=== PATIENT | male | born 1975 | race Caucasian/White ===

== ENCOUNTER 2017-02-06 07:47 | Observation (INO) | payer BC ==
[2017-02-04 15:47] VITALS: BMI 52.9
[~2017-02-06 07:47] MED LIST: DEXAMETHASONE SOD PHOSPHATE 10 MG/ML 1 ML VIAL IV ONE; ONDANSETRON 4 MG/2 ML VIAL IVP ONE; Pre Op ABX Message 1 EACH MISC MISCELLANE ONE; SCOPOLAMINE 1.5MG/72HR PATCH TRANSDERM ONE
[2017-02-06] MEDS: LACTATED RINGERS 1,000 ML IV SCH ×3 (08:34→21:45)
[2017-02-06] MEDS ORDERED: LIDOCAINE 1% 20 ML VIAL (10MG/ML) FOR IV START INTRADERMA ONE (08:37)
[2017-02-06] MEDS ORDERED: ceFAZolin 2 GM in SODIUM CHLORIDE 0.9% 100 ML IVPB ONE (08:53)
[2017-02-06] MEDS ORDERED: LIDOCAINE 1% INJ 10MG/ML (20 ML MDV) ONE (09:24)
[2017-02-06] MEDS ORDERED: fentaNYL (PF) 50 MCG/ML 2 ML AMP ONE (09:24)
[2017-02-06] MEDS ORDERED: HYDROmorphone (PF) 1 MG/ML ONE (09:24)
[2017-02-06] MEDS ORDERED: GLYCOPYRROLATE 0.2 MG/ML 2 ML VIAL ONE (09:24)
[2017-02-06] MEDS ORDERED: SUCCINYLCHOLINE CHLORIDE VIAL 200 MG/10 ML VIAL IV ONE (09:24)
[2017-02-06] MEDS ORDERED: MIDAZOLAM 2 MG/2 ML VIAL ONE (09:24)
[2017-02-06] MEDS ORDERED: PROPOFOL 10 MG/ML 20 ML VIAL IV ONE (09:24)
[2017-02-06] MEDS ORDERED: ePHEDrine 50 MG/ML 1 ML AMP ONE (09:24)
[2017-02-06] MEDS ORDERED: ceFAZolin 1,000 MG in SODIUM CHLORIDE 0.9% 1,000 ML IRRIGATION ONE (09:50)
[2017-02-06] MEDS ORDERED: LACTATED RINGERS 1,000 ML IV ONE (09:55)
[2017-02-06] MEDS ORDERED: HYDROcodone/APAP 5-325MG 1 EACH TAB PO PRN ×2 (10:56)
[2017-02-06] MEDS ORDERED: ONDANSETRON 4 MG/2 ML VIAL IVP PRN (10:56)
[2017-02-06] MEDS: HYDROmorphone 1 MG/ML 1 ML SYRINGE IVP PRN ×6 (10:56→23:40)
[2017-02-06] MEDS ORDERED: SENNOSIDES-DOCUSATE SODIUM 1 EACH TAB PO PRN (10:56)
[2017-02-06] MEDS ORDERED: HYDROmorphone 1 MG/ML 1 ML SYRINGE IVP PRN ×2 (10:56)
[2017-02-06] MEDS ORDERED: TEMAZEPAM 15 MG CAP PO PRN (10:56)
[2017-02-06] MEDS ORDERED: HYDROcodone/APAP 7.5-325MG 1 EACH TAB PO PRN (11:00)
[2017-02-06] MEDS ORDERED: KETOROLAC 30 MG/ML 1 ML VIAL IVP ONE (11:05)
[2017-02-06] MEDS: MIDAZOLAM 2 MG/2 ML VIAL IV PRN ×2 (11:15→11:23)
[2017-02-06] MEDS: MEPERIDINE 50 MG/ML SYRINGE IVP ONE ×2 (11:16→11:22)
[2017-02-06] MEDS: fentaNYL (PF) 50 MCG/ML 2 ML AMP IV ONE ×2 (11:39→11:50)
[2017-02-06 12:02] VITALS: RESP 16
[2017-02-06] MEDS: ceFAZolin 2 GM in SODIUM CHLORIDE 0.9% 100 ML IVPB SCH ×2 (14:00→23:43)
[2017-02-06] MEDS: HYDROcodone/APAP 7.5-325MG 1 EACH TAB PO PRN ×2 (15:33→21:44)
[2017-02-06] MEDS: hydrOXYzine PAMOATE 25 MG CAP PO PRN (21:44)
[2017-02-07] MEDS: LACTATED RINGERS 1,000 ML IV SCH ×2 (00:47→09:17)
[2017-02-07] MEDS: HYDROcodone/APAP 7.5-325MG 1 EACH TAB PO PRN ×2 (03:11→09:26)
[2017-02-07] MEDS: hydrOXYzine PAMOATE 25 MG CAP PO PRN ×4 (03:11→21:07)
[2017-02-07] MEDS: LISINOPRIL 10 MG TAB PO SCH (07:37)
[2017-02-07] MEDS: HYDROmorphone 1 MG/ML 1 ML SYRINGE IVP PRN ×2 (07:37→12:24)
[2017-02-07] MEDS ORDERED: LISINOPRIL 2.5 MG TAB PO SCH (09:00)
--- NOTE | 2017-02-07 10:40 | P.DS ---
Providers Date of admission: 02/06/17 22:04 Expected date of discharge: 02/07/17 Attending physician: Guido Sanchez Primary care physician: Felipe Taylor - Discharge Diagnosis(es) (1) Quadriceps tendon rupture Current Visit: Yes Status: Acute Hospital Course: This is a 41-year-old male who is seen in our office with acute quadriceps tendon rupture. It was recommended that he go undergo quadriceps tendon repair. Patient is admitted to [facility] on 02/06/2017. Patient underwent open quadriceps tendon repair on 02/06/2017. He is in good condition postoperatively. Vital signs and labs are stable. The patient may be discharged to home on 02/07/2017 in good condition. Patient Condition at Discharge: Good Plan - Discharge Summary New Discharge Prescriptions: Aspirin 325 mg PO BID #60 tab HYDROcodone/APAP 10-325MG [Dawson 10-325] 1 - 2 tab PO Q4-6H PRN #90 tab PRN Reason: Pain Sennosides-Docusate Sodium [Senokot-S] 2 tab PO DAILY #30 tablet hydrOXYzine PAMOATE [Vistaril] 25 mg PO Q4-6H #30 capsule Discharge Medication List Lisinopril [Zestril] 10 mg PO QAM 01/23/15 [History] Hydrocodone/Acetaminophen [Hydrocodone/Acetaminophen 7.5-300] 1 tab PO Q4H PRN 02/04/17 [History] Aspirin 325 mg PO BID #60 tab 02/06/17 [Rx] Sennosides-Docusate Sodium [Senokot-S] 2 tab PO DAILY #30 tablet 02/06/17 [Rx] HYDROcodone/APAP 10-325MG [Dawson 10-325] 1 - 2 tab PO Q4-6H PRN #90 tab [Rx] hydrOXYzine PAMOATE [Vistaril] 25 mg PO Q4-6H #30 capsule 02/07/17 [Rx] Follow up Appointment(s)/Referral(s): Guido Sanchez DO [Doctor of Osteopathic Medicine] - 10 Days (10-14 days) Activity/Diet/Wound Care/Special Instructions: Change knee dressing daily and as needed. Keep incision clean and dry Yordan to be removed at follow up appointment Keep knee brace on at all times Non-weightbearing to the right leg Follow up with Dr. Sanchez in 10-14 days Call [facility] with any questions or concerns, . Discharge Disposition: HOME SELF-CARE
[2017-02-07] MEDS ORDERED: HYDROcodone/APAP 10-325MG 1 EACH TAB PO PRN (11:34)
[2017-02-07] MEDS: HYDROcodone/APAP 10-325MG 1 EACH TAB PO PRN ×2 (15:38→21:07)
[2017-02-08] MEDS: hydrOXYzine PAMOATE 25 MG CAP PO PRN ×2 (03:33→08:21)
[2017-02-08] MEDS: HYDROcodone/APAP 10-325MG 1 EACH TAB PO PRN ×2 (03:33→08:21)
[2017-02-08] MEDS: LISINOPRIL 10 MG TAB PO SCH (08:13)
--- NOTE | 2017-02-08 10:05 | P.PN ---
Progress Note - Text This is an addendum to discharge summary on Minor Leung. Patient's discharge was held yesterday due to pain management. The patient is discharged to home on 02/08/2017 in good condition.
[2017-02-08 10:31] VITALS: BP 127/75; PULSE 94; TEMP 98
--- NOTE | 2017-02-10 08:20 | OP ---
DATE OF SERVICE: 02/06/2017 SURGEON: RAYRAY AZAR DO SHAPER OPERATOR: Claudia Everett NP PREOPERATIVE DIAGNOSIS: Acute rupture quadriceps tendon right knee. POSTOPERATIVE DIAGNOSIS: Acute rupture quadriceps tendon right knee. OPERATION: Repair of the acute quadriceps rupture of the right knee at the superior pole of patella. ANESTHESIA: ESTIMATED BLOOD LOSS: SPECIMENS REMOVED: COMPLICATIONS: OPERATIVE FINDINGS: DESCRIPTION OF PROCEDURE: The patient was taken to the operative suite and placed in supine position. Spinal anesthesia was performed by the department of anesthesiology. Betadine prep was carried out over the right knee from mid thigh to mid calf. Sterile drapes applied in the usual manner. Pneumatic tourniquet was inflated to 350 mmHg. A longitudinal incision was developed at the superior pole of the right patella position. Dissection in the subcutaneous tissue was performed. The direct visualization of the acute rupture was noted with quadriceps tendon retracted at the rupture from the superior tear of patella. There also was a lateral extension of the quadriceps both medial and lateral. The hematoma was evacuated and copious irrigation was performed. The rongeur was utilized in preparation for repair at the bone. Drill holes in the patella and #5 Ethibond suture was utilized in repairing the tear as well as utilizing the Yariel stitch fashion 2 Ethibond as well medial and lateral portions of the rupture. The area was irrigated and complete apposition with no retrograde deformity medial and lateral portions. The quadriceps area was sutured with #3 Vicryl suture in a modified Yariel running fashion. The superficial fascia was then approximated with 2-0 Vicryl suture in running fashion. Subcutaneous tissue approximated with 2-0 Vicryl suture. The skin was approximated with skin clamps. Betadine, Adaptic, sterile pressure dressing was applied. The pneumatic tourniquet was deflated. He was placed in a knee immobilizer. The patient was transferred to the recovery room in satisfactory postoperative condition. GROSS PATHOLOGY: Completely ruptured quadriceps tendon superior pole of right patella with both medial and lateral quadriceps extension. [facility]
== END 2017-02-08 11:40 | disposition home or self-care (01) ==
LOC: OR 07:47 → 3SUR 10:52 → OR 22:04 → 3SUR 22:04
PROVIDERS: ADMIT Orthopaedic Surgery; ATTEND Orthopaedic Surgery
DX: S76.111A Strain of right quadriceps muscle, fascia and tendon, initial encounter (principal); W19.XXXA Unspecified fall, initial encounter; Y93.41 Activity, dancing; I10 Essential (primary) hypertension; Z79.899 Other long term (current) drug therapy; G89.18 Other acute postprocedural pain
CPT/HCPCS: 94760; 97161; 20999; G0378 ×3; J2250; J0330; J1100; J2175; J0690 ×2; J2405; J2001; J3010; J1885; J1170 ×2; J2704; 96374; 96376

== ENCOUNTER → 2018-03-12 | Outpatient (CLI) | payer BC ==
[2018-03-12 17:12] LABS: Hemoglobin A1C 5.7 % (4.0-6.0)
== END | disposition home or self-care (01) ==
LOC: LABWHC1 10:02
PROVIDERS: ATTEND Ophthalmology
DX: H35.60 Retinal hemorrhage, unspecified eye (principal)
CPT/HCPCS: 36415; 83036

== ENCOUNTER → 2018-11-29 | Outpatient (CLI) | payer BC ==
--- NOTE | 2018-11-29 08:14 | CT ---
EXAMINATION TYPE: CT sinus wo con DATE OF EXAM: 11/29/2018 COMPARISON: None HISTORY: Chronic sinusitis CT DLP: [address] of the paranasal sinuses was performed in the axial and coronal planes. Bone and soft tissue settings are submitted. The paranasal sinuses demonstrate normal aeration and development. There is mild mucosal thickening sphenoid sinus and scattered ethmoid air cells. The osteal meatal units are patent bilaterally. Mild nasal septal deviation from right to left. No bony destructive changes are seen within the field of view. IMPRESSION: Mild chronic sinusitis.
== END ==
LOC: RADCTMAIN 07:34
PROVIDERS: ATTEND Otolaryngology
DX: J32.9 Chronic sinusitis, unspecified (principal)
CPT/HCPCS: 70486

== ENCOUNTER → 2018-12-06 | Outpatient (CLI) | payer BC | END | disposition home or self-care (01) | LOC: LABPAT 08:10 | PROVIDERS: ATTEND Otolaryngology | DX: Z01.818 Encounter for other preprocedural examination (principal); I10 Essential (primary) hypertension | CPT/HCPCS: 93005 ==